=== PATIENT | female | born 1945 ===

== ENCOUNTER 2019-11-04 09:02 | Inpatient (IN) | payer MEDICARE ==
[~2019-11-04] VITALS: Ht 157.5 cm; Wt 43.0 kg
[2019-11-04] MEDS ORDERED: TYLENOL325 MG PO (09:24)
--- NOTE | 2019-11-04 13:47 | NUR ---
NEW ADMIT TO THE FLOOR. PT ARRIVED TO UNIT A&OX4, ON RA, RESP EVEN AND NON LABORED. PT VERY HARD OF HEARING. PT DENIES PAIN AND SOB AT THIS TIME TIME. PT'S SISTER AT BEDSIDE AT THIS TIME. PT DUE TO VOID.
--- NOTE | 2019-11-04 13:50 | NUR ---
CHOCOLATE ENSUDE PROVIDED TO PT. PT DRANK A FEW SIPS AT THIS TIME. PERSONAL SUPPLIES AND CALL LIGHT WITHIN REACH.
--- NOTE | 2019-11-04 13:58 | NUR ---
BLOOD SUGAR CHECKED UPON RN REQUEST. BLOOD SUGAR IS 90, RN NOTIFIED. CALL LIGHT IN REACH. NO FURTHER NEEDS AT THIS TIME.
--- NOTE | 2019-11-04 13:58 | NUR ---
PATIENT RESTING IN BED. RN AND DAUGHTER IN ROOM. I&O DONE. ICE WATER GIVEN. CALL LIGHT WITHIN REACH. NO OTHER NEEDS AT THIS TIME
--- NOTE | 2019-11-04 14:49 | NUR ---
RANITIDINE 150MG PO ADMIN PER PT REQUEST. PT REPORTS ACID REFLUX AT THIS TIME.
--- NOTE | 2019-11-04 15:47 | NUR ---
PATIENT RESTING IN BED. SISTER IN ROOM. BEDBATH DONE. PERICARE DONE. PATIENT USING A CLEAN GOWN AND ADULT PULL UP. PATIENT GOES TO USE THE BASE COMMODE. ONE PERSON ASSISTING. URINE SAMPLE SENT TO THE LABORATORY. CALL LIGHT WITHIN REACH. NO OTHER NEEDS AT THIS TIME
--- NOTE | 2019-11-04 16:40 | NUR ---
PT IN BED AT THIS TIME, EYES CLOSED, APPEARS TO BE SLEEPING. PT HAS NO NOTABLE DISTRESS, RESP EVEN AND NON LABORED. SISTER AT BEDSIDE. NO NEEDS AT THIS TIME REPORTED FROM SISTER. CALL LIGHT WITHIN REACH OF PT.
--- NOTE | 2019-11-04 17:18 | NUR ---
PT A&OX4, ON RA. VS STABLE. PIVOT TO COMMODE; WEAK. ENCOURAGE FOOD INTAKE. PT DOES NOT CALL STAFF APPROP. IV FLUIDS INFUSING.
--- NOTE | 2019-11-04 17:26 | NUR ---
PATIENT RESTING IN BED. SISTERS IN ROOM. VITAL SIGNS AND I&O DONE. LOW SYSTOLIC BLOOD PRESSURE. RN NOTIFIED. CALL LIGHT WITHIN REACH. NO OTHER NEEDS AT THIS TIME
--- NOTE | 2019-11-04 17:35 | NUR ---
PATIENT SITTING UP IN BED. SISTERS IN ROOM. SETS UP TABLE FOR DINNER. CALL LIGHT WITHIN REACH. NO OTHER NEEDS AT THIS TIME
--- NOTE | 2019-11-04 18:05 | NUR ---
CALL LIGHT ANSWERED. PATIENT RESTING IN BED. PATIENT GOES TO USE THE BASE COMMODE. ONE PERSON ASSISTING. PATIENT HAS A RED/ORANGE SMALL BM. RN NOTIFIED. CALL LIGHT WITHIN REACH. NO OTHER NEEDS AT THIS TIME
--- NOTE | 2019-11-04 18:06 | NUR ---
NICOLASA MORGNA ASISSTED PT TO COMMODE NOTED RUST COLOR MUCUS TEXTURE SMALL AMOUNT FROM RECTUM IN DEPENDS CALLED THIS RN INTO SEE, NOTIFIED
--- NOTE | 2019-11-04 18:17 | NUR ---
PT AWAKE, VISITING WITH FAMILY. PT DENIES PAIN AT THIS TIME. PERSONAL SUPPLIES WITHIN REACH. NO NEEDS AT THIS TIME. CALL LIGHT WIHTIN REACH.
--- NOTE | 2019-11-04 18:34 | NUR ---
MED REC COMPLETE
--- NOTE | 2019-11-04 19:44 | NUR ---
RECEIVED REPORT FROM DAY SHIFT RN. PATIENT ASSISTED TO THE BSC A SBA. PATIENT HAD SMALL LOOSE BM. PATIENT IS NOW BACK IN BED RESTING. PATIENT DENIES ANY NEEDS. WARM BLANKET PROVIDED. CALL LIGHT IN REACH. SISTER PRESENT AT THE BEDSIDE. BED ALARM ON FOR SAFETY.
--- NOTE | 2019-11-04 19:50 | NUR ---
ANSWERED CALL LIGHT. 1 PA TO THE BEDSIDE COMMODE AND BACK TO BED. PATIENT STATED " I CAN'T GO". PATIENT DID NOT HAVE VOIDINGS NOR BOWEL MOVEMENT. CALL LIGHT IN REACH. BED ALARM ON. PRIMARY RN NOTIFIED.
--- NOTE | 2019-11-04 20:10 | NUR ---
PATIENT USED THE CALL BUTTON. PATIENT WANTED TO USE THE COMMODE.1 PA TO PIVOT. PATIENT STATED I FEEL LIKE I NEED TO GO". PATIENT IS BACK IN BED. PATIENT DID NOT ABLE TO VOID. PRIMARY RN DONY NOTIFIED. CALL BUTTON WITHIN PATIENT'S REACH. BED ALARM ON.
--- NOTE | 2019-11-04 20:55 | NUR ---
WENT IN TO THE ROOM TO BLADDER SCAN. PATIENT WANTED TO USE THE BEDSIDE COMMODE. PATIENT HAD A SMALL BM. PRIMARY RN DONY CHECKED THE BM. BLADDER SCANNED WITH 207 ML. V/S AND I&O TAKEN AND RECORDED.
--- NOTE | 2019-11-04 21:12 | NUR ---
PATIENT ASSESMENT COMPLETED. PATIENTS IV REDRESSED. PATIENTS EVENING MEDICATIONS GIVEN PER ORDER. PATIENT DENIES ANY PAIN OR SOB. PATIENT EDUCATED ON EAR DROPS. PATIENT DENIES ANY QUESTIONS ABOUT TREATMENT. PATIENTS IV INFUSING PER ORDER. PATIENT BLADDER SCANNED FOR 207. PATIENTS VITALS TAKEN AND RECORDED. INTAKE AND OUPUT RECORDED. PATIENT DENIES ANY FURTHER NEEDS. CALL LIGHT IN REACH.
--- NOTE | 2019-11-04 22:31 | NUR ---
PT CALLED APPROPRIATELY TO USE COMMODE, UNABLE TO VOID. PRIMARY RN AWARE.
--- NOTE | 2019-11-04 22:50 | NUR ---
PATIENT IS RESTING IN BED. PATIENTS IV IS BEEPING. PATIENTS IV IS IN AC. ATTEMPTED NEW IV WITH NO SUCCESS. PATIENT DENIES ANY NEEDS. WRAPPED ARM WITH TOWEL. EDUCATED PATIENT TO KEEP ARM STRAIGHT. BED ALARM ON FOR SAFETY. CALL LIGHT IN REACH.
--- NOTE | 2019-11-04 23:34 | NUR ---
ANSWERED CALL LIGHT. 1 PA TO BEDSIDE COMMODE. NO VOIDINGS OR BOWEL MOVEMENT. THERE WAS A SMEAR COLOR RED ON HER PULL UPS. PATIENT IS BACK IN BED. BURP BAG AND CALL LIGHT IN PATIENT'S HAND.
--- NOTE | 2019-11-05 00:06 | NUR ---
PATIENT IS RESTINGIN BED WITH EYES CLOSED, RR 16. CALL LIGHT IN REACH.
--- NOTE | 2019-11-05 01:56 | NUR ---
PATIENT ASSISTED TO THE COMMODE. PATIENT WAS UNABLE TO VOID. PATIENT IS BACK IN BED RESTING. PATIENTS VITALS TAKEN AND RECORDED. PATIENT BLADDER SCANNED FOR 221ML. AFTER ACITIVITY PATIENT REQUESTED TO USE COMMODE. PATIENT WAS ABLE TO VOID THIS TIME FOR 200ML. PATIENT IS BACK IN BED RESTING. PATIENT DENIES ANY PAIN. PATIENT DENIES ANY NEEDS. PATIENT PROVIDED WITH DRINKS OF WATER. CALL LIGHT IN REACH. ALARM ON FOR SAFETY.
--- NOTE | 2019-11-05 03:20 | NUR ---
1 PA TO COMMODE. PATIENT'S PULL UPS HAD A SMEAR IN RED COLOR. PATIENT DID NOT URINATE OR BM. PATIENT IS BACK IN BED. CALL LIGHT IN REACH. OFFERED WATER TO DRINK AND HAD 2 SIPS. BED ALARM ON FOR SAFETY.
--- NOTE | 2019-11-05 03:32 | NUR ---
PATIENT ASSISTED TO THE RESTROOM A 1PA W/FWW. PATIENT WAS ABLE TO VOID. PATIENT IS NOW RESTING IN RECLINER AND WOULD LIKE TO SIT THER FOR 1 HOUR. PATIENTS BELONGINGS WITHIN REACH. CALL LIGHT IN REACH. PATIENT DENIES ANY FURTHER NEEDS. CALL LIGHT IN REACH.
--- NOTE | 2019-11-05 04:47 | NUR ---
PATIENT ASSISTED TO THE THE BSC A PIVOT TRANSFER. PATIENT IS NOW BACK IN BED RESTING. PATIENTS VITALS TAKEN AND RECORDED. PATIENTS INTKAE AND OUPUT RECORDED. PATIENTS DW TAKEN. PATIENT DENIES ANY NEEDS. CALL LIGHT IN REACH. IV INFSING PER ORDER.
--- NOTE | 2019-11-05 05:08 | NUR ---
PATIENT RESTED ON AND OFF THROUGHOUT THE SHIFT. PATIENT IS ON A REGULAR DIET. DECREASED APPETITE, ENCOURAGE INTAKE, AND OFFER ENSURES. PATIENT HAS DENIED AND PAIN OR NAUSEA. PATIENT IS A 1PA, PIVOT TRANSFER TO [facility]. PATIENT IS TLING[place] & HAIDA. PATIENT IS ON RA. PATIENT IS AAOX3 AND USES CALL LIGHT APPROPRIATELY. IV INFUSING PER ORDER.
--- NOTE | 2019-11-05 05:37 | NUR ---
PATIENTS MORNING MEDICATIONS GIVEN PER ORDER. LAB IN ROOM. PATIENT DENIES ANY NEEDS. CALL LIGHT IN REACH.
--- NOTE | 2019-11-05 06:57 | NUR ---
UNSUCCESSFUL IV ATTEMPTS X 4
--- NOTE | 2019-11-05 07:20 | EKG ---
[facility] [address] [facility] [place], [place] [address] Signed Normal sinus rhythm Low voltage QRS Cannot rule out Anterior infarct , age undetermined Abnormal ECG No previous ECGs available Confirmed by TIGRE TANNER MD ([id number]) on 11/05/2019 7:20:19 AM Electronically Signed By: TIGRE TANNER MD 11/05/1920 PATIENT NAME: AUGUSTUS MOLINA Electrocardiogram DATE OF : 45 PHYSICIAN: TIGRE TANNER MD REPORT #: [id number] REPORT IS CONFIDENTIAL AND NOT TO BE RELEASED WITHOUT AUTHORIZATION
--- NOTE | 2019-11-05 07:31 | NUR ---
Pt awake, a&ox4, resp even and non labored. Pt denies pain at this time. Pt's sister at bedside. Personal supplies and call light within reach.
--- NOTE | 2019-11-05 09:12 | NUR ---
PATIENT RESTING IN BED. SISTERS IN ROOM. PATIENT GOES TO USE THE BASE COMMODE. ONE PERSON ASSISTING. PATIENT BACKS TO BED. VITAL SIGNS AND I&O DONE. PATIENT DID NOT VOID DURING THIS PERIOD. RN NOTIFIED. CALL LIGHT WITHIN REACH. NO OTHER NEEDS AT THIS TIME
--- NOTE | 2019-11-05 11:13 | NUR ---
PATIENT RESTING IN BED. IV WRAPPED. PATIENT GOES TO THE BATHROOM TO TAKE A SHOWER. ONE PERSON ASSITING. PATIENT USING A CLEAN GOWN AND ADULT PULL UP. LINENS CHANGED. WARM BLANKETS PROVIDED. CALL LIGHT WITHIN REACH. NO OTHER NEEDS AT THIS TIME
--- NOTE | 2019-11-05 14:06 | NUR ---
WENT TO CHECK ON PT-RN FAMILIA IN WITH PT ASSISTING. FAMILY IN RM. WILL CHECK BACK AGAIN
--- NOTE | 2019-11-05 14:21 | NUR ---
PATIENT RESTING IN BED. VITAL SIGNS AND I&O DONE. PATIENT DID NOT DRINK ANY LIQUIDS DURING THIS PERIOD, THIS COMIC BOOK WRITER ENCOURAGE HER TO DO IT BUT THE PATIENT REFUSES. RN NOTIFIED. WARM BLANKET PROVIDED. CALL LIGHT WITHIN REACH. NO OTHER NEEDS AT THIS TIME
--- NOTE | 2019-11-05 14:54 | NUR ---
Pt has been on the commode serveral times this afternoon. Pt reports sensation to have a bm each time when up to bedside commode. Pt passing small amounts of soft stool. Pt has what appears to look like external hemorrhoids. Notable, flavio colored stool. Per shift report pt had a positive occult blood stool test. Bladder scan completed; 204ml noted. Dr. Nichols made aware of bladder scan.
--- NOTE | 2019-11-05 15:22 | NUR ---
In to speak with pt and family. Pt is awake, keeps eyes closed. Does agree to answer questions. Pt. is able to answer questions for CM assessmetn, but has difficulty hearing. Pt lives aloone in an apartment and neighbor upstains checks on jher rarely. Pt is a private person and prefers to ask for help rather than people check onher. Sisters called her everyday, but over the last few months one retired and is ill. They have not been able to contact as much. Last when they called they could tell she was very weak. Prt's passed 2 years ago and per sisters, he did the shopping and took care of everything. He made all the decisions. Sisters would like pt to move to [place] to a senior care until she becomes stronger. They are also concerned pt. has not been taking her RA injections. Asked Sheryl if she would agree to this and she states for a short time, she will consider. Informed pt and sisters I will call [facility] as this is [facility] in [place] and request space. Sisters state their mom lived there and they are very happy with the care which was provided. Called [facility] [phone] and was unable to contact RN or admissions. Left message with phone number for return call. Pt states she has not felt well for at least one month, stopped driving, shopping, and going out. Neighbor bought her cat food, but she doesn't remember when. States she has lived on peanut butter. States she thinks she has been cooking, but can't remember. Will attempt to place at [facility] in [place].
--- NOTE | 2019-11-05 16:49 | NUR ---
Pt resting in bed, resp even and non labored. Pt has no distress noted. Personal supplies and call light within reach.
--- NOTE | 2019-11-05 16:58 | NUR ---
CALL LIGHT ANSWERED. PATIENT RESTING IN BED. PATIENT USES BASE COMMODE. ONE PERSON ASSISTING. PATIENT BACKS TO BED. VITAL SINGS AND I&O DONE. CALL LIGHT WITHIN REACH. NO OTHER NEEDS AT THIS TIME
--- NOTE | 2019-11-05 18:25 | NUR ---
PT REFUSED DINNER. ENCOURAGED PT TO DRINK WATER/ENSURE; PT FEFUSES AND STATES "I DON'T WANT ANYTHING".
--- NOTE | 2019-11-05 19:59 | NUR ---
CALL LIGHT ANSWERED. SBA TO PIVOT TO BSC. pt UNABLE TO VOID AT THIS TIME, DENIES DISCOMFORT. pt BACK IN BED. ASSESSMENT COMPLETE. IV FLUSHED, INFUSING WNL ORDERED. CALL LIGHT IN REACH. pt DENIES ANY NEEDS AT THIS TIME.
--- NOTE | 2019-11-05 20:16 | NUR ---
ROUNDED CHARGE. PATIENT IS UP TO THE COMMODE. EDWIN DELVALLE IN ROOM AND SG MORGAN. PATIENT DENIES ANY COMMENTS, QUESTIONS, OR CONCERNS. NO NEEDS NOTED. CALL LIGHT IN REACH.
--- NOTE | 2019-11-05 21:18 | NUR ---
pt CALLING OUT "HELP". ATTEMPTING TO GET OUT OF BED. UP TO BSC FOR SCANT VOID, SMALL INCONTINENCE IN ATTENDS. CHANGED. pt BACK IN BED. ALARM ON. CALL LIGHT IN LAP. IVF INFUSING WNL.
--- NOTE | 2019-11-05 23:24 | NUR ---
CALL LIGHT ANSWERED. SBA TO PIVOT TO BSC. SCANT VOID AND SMEAR BM, ATTENDS CHANGED. BACK IN BED, CALL LIGHT IN REACH. IVF INFUSING WNL ORDERED. NO REQUESTS AT THIS TIME.
--- NOTE | 2019-11-06 01:06 | NUR ---
CALL LIGHT ANSWERED. SBA TO PIVOT TO BSC. UNABLE TO VOID IN COMMODE. BACK IN BED, CALL LIGHT ANSWERED AGAIN. LARGE INCONTINENCE OF STOOL AND URINE NOTED. ATTENDS CHANGED. CALL LIGHT IN REACH. BED ALARM ON.
--- NOTE | 2019-11-06 02:56 | NUR ---
CALL LIGHT ANSWERED. SBA TO PIVOT TO BSC. NO VOID OR STOOL NOTED. ATTENDS DRY. BACK IN BED. IVF INFUSING WNL ORDERED. ASSESSMENT COMPLETE. pt DENIES ANY PAIN. CALL LIGHT IN REACH.
--- NOTE | 2019-11-06 03:23 | NUR ---
CALL LIGHT ANSWERED. SBA TO BSC, SCANT VOID AND SMEAR OF BM NOTED. BACK IN BED. WARM BLANKET PROVIDED. NEW BAG IVF INFUSING WNL ORDERED. BED ALARM ON. CALL LIGHT IN REACH.
--- NOTE | 2019-11-06 05:00 | NUR ---
[place]. 1PA TO PIVOT TO BSC FREQUENTLY THROUGHOUT SHIFT. SOME INCONTINENCE OF STOOL AND URINE NOTED. MINIMAL PO INTAKE, INTAKE ENCOURAGED. DENIES PAIN AND NAUSEA. IVF INFUSING WNL ORDERED. IMPULSIVE X 1, BED ALARM IN PLACE.
--- NOTE | 2019-11-06 05:31 | NUR ---
CALL LIGHT ANSWERED. SBA TO PIVOT TO BSC AND BACK TO BED. SCHEDULED MEDICATION ADMINISTERED. pt DRINKING WATER. WARM BLANKETS PROVIDED. CALL LIGHT IN REACH.
--- NOTE | 2019-11-06 07:15 | NUR ---
REPORT RECEIVED FROM ADELIA LYON. PT RESTING IN BED. [facility] VOIDS SMALL AMOUNT OF URINE. SBA BACK TO BED. PT DENIES PAIN AND NAUSEA. SISTER ARRIVED. NO ADDITIONAL REQUESTS OR COMPLAINTS. CALL LIGHT WITHIN REACH.
--- NOTE | 2019-11-06 08:20 | NUR ---
MORNING ASSESSMENT AND MEDICATION DUE. PT RESTING IN BED. PT DECLINES BREAKFAST. ENSURE PROVIDED, PT DECLINES. EDUCATION DONE WITH PT REGARDING NUTRITION. PT VERBALIZES UNDERSTANDING. FAMILY AT BEDSIDE AND ARE ENCOURAGING PT TO EAT/DRINK. PT UP TO COMODE X4 WHILE THIS RN IS AT BEDSIDE FOR ASSESSMENT. SMALL VOIDS AND MULITPLE LOOSE/LIQUID BOWEL MOVEMENTS NOTED. VIKKI CARE AND DEPENDS CHANGED MULTIPLE TIMES. MD NOTIFIED. SAMPLE COLLECTED. DINING ROOM CASHIER AT BEDSIDE.
--- NOTE | 2019-11-06 10:00 | NUR ---
Called Title I Instructional Assistant, admissions, and Rn. Left message for call back as we are needing to place a patient.
--- NOTE | 2019-11-06 10:25 | NUR ---
THIS RN TO ROOM WITH MD FOR ROUNDS. PT RESTING IN BED. PT REPORTS FEELING COLD. WARM BLANKETS PROVIDED. PIV LEAKING. PIV DC'D PER PROTOCOL. NEW PIV STARTED IN LFA, BLOOD RETURN NOTED WITH IV START. IV INFUSION RESTARTED. PT RESTING IN BED. RESPIRATIONS EVEN AND UNLABORED. CLEAR ENSURE PROVIDED WITH ICE TO DILUTE. LUNCH ORDER PLACED. PT SISTER VISITING WITH GAURANG, CASE MANAGEMENT. NO ADDITIONAL REQUESTS OR COMPLAINTS AT THIS TIME. CALL LIGHT WITHIN REACH.
--- NOTE | 2019-11-06 10:30 | NUR ---
Received call from Phy Therapist at [facility]. They do not have a any room availability until the new year. He recommended their assisted living if pt does not need more than 1 person assist. Called and spoke with Riya [phone] phone and [phone] fax. She does have beds available. Requests we send chart when pt is closer to [place]. Discussed with Dr. Nichols and she feels pt. is not read for dc.
--- NOTE | 2019-11-06 11:11 | NUR ---
PT CALL LIGHT ON X3. PT REQUESTS ASSISTANCE UP TO COMODE EVERY 5-10 MINUTES. DEPENDS REMAINS DRY. WHEN PT IS UP TO COMODE PT IS UNABLE TO HAVE BM OR VOID. PT STATES SHE WANTS TO HAVE A BOWEL MOVEMENT. PT BACK TO BED AFTER VIKKI CARE (X3) AND DEPENDS CHANGE (X1). WARM BLANKETS PROVIDED FOR PT. PT DENIES ADDITIONAL REQUESTS OR COMPLAINTS AT THIS TIME. CALL LIGTH WITHN REACH. BED ALARM ON.
--- NOTE | 2019-11-06 12:11 | NUR ---
NOON ASSESSMENT DUE. PT RESTING WITH EYES CLOSED. PT AWAKENS TO VOICE AND LIGHT TOUCH. PT DECLINES TIME UP TO CHAIR OR BATHROOM USE. PT DENIES PAIN AND NAUSEA. ASSESSMENT DONE. PT REQUESTS TIME TO REST. ENSURE ENCORUAGED. PT TAKES ONE SMALL SIP. NO ADDITIONAL REQUESTS OR COMPLAINTS. CALL LIGHT WITHIN REACH. BED ALARM ON.
--- NOTE | 2019-11-06 12:25 | NUR ---
THIS RN TO ROOM TO CHECK ON PT. PT SITTING ON EDGE OF BED FINISHING LUNCH. 1PA, WALKER UP TO RESTROOM. DEPENDS WET. PT UNABLE TO CHANGE DEPENDS ON HER OWN, ASSISTANCE PROVIDED. PT ABLE TO WIPE SELF. 1PA, WALKER BACK TO BED. PT UNABLE TO GET SELF INTO BED. 1PA TO GET INTO BED. SON AT BEDSIDE. CALL LIGHT WITHIN REACH.
--- NOTE | 2019-11-06 12:51 | NUR ---
PT CALL LIGHT ON. PT REQUESTS ASSISTANCE UP TO COMODE. 1PA UP TO COMODE. PT UNABLE TO HAVE BM EXPECTED. SMALL SMEER ON DEPENDS. VIKKI CARE DONE. DEPENDS CHANGED. PT BACK TO BED. ENSURE ENCORUAGED, PT REFUESES TO TAKE A SIP OF ENSURE. NO ADDITIONAL REQUESTS OR COMPLAINTS. PTS SISTER AT BEDSIDE. CALL LIGHT WITHIN REACH.
--- NOTE | 2019-11-06 13:23 | NUR ---
PT REATING IN BED, TV AND LIGHTS OFF. PT SAID SHE WAS FINE, BUT NEEDED TO USE BR. REQUESTED HELP, PASSED ON TO STAFF. WILL CONTINUE TO FOLLOW NEEDED
--- NOTE | 2019-11-06 13:30 | NUR ---
Sister Monica returned from getting flu shot. Has paper work for POA. Plans on leaving tomorrow. Attempted to call kale in the hospital as [facility] agrees to Monica to be her POA. Notarys are gone today. Called her bank and their notary agrees to come notarize POA. Update Monica I spoke with assisted living in [place] and there are beds available. Plan at this time: 1. pt needs to stablize thyroid 2. possible placement to SNF or TC depending on how pt progresses, 3. Placement to SNF or Assisted living depending on progress. Sister, Choco, will stay in [place] with [facility] until she leaves the hospital. Sister, Livia, will return to [place] tomorrow to care for her spouse. on Hospice.
--- NOTE | 2019-11-06 13:45 | NUR ---
THIS RN TO ROOM TO CHECK ON PT. PT UP TO COMODE, UNABLE TO VOID. MD NOTIFIED OF PTS INADEQUATE URINE OUTPUT. NO NEW ORDERS AT THIS TIME. CALL LIGHT WITHIN REACH. FAMILY AT BEDSIDE.
--- NOTE | 2019-11-06 14:19 | NUR ---
PT CALL LIGHT ON. PT REQUESTS ASSISTANCE UP TO BEDSIDE COMODE. SBA UP TO COMODE. PT UNABLE TO VOIDE OR HAVE BM. PT REQUESTS TO GET BACK TO BED. VITALS TAKEN. I/O'S RECORDED. AWARE THAT PT IS NOT VOIDING QUANTITY SUFFICIENT. WARM BLANKETS PROVIDED. NO ADDITIONAL REQUESTS OR COMPLAINTS AT THIS TIME. CALL LIGHT WITHIN REACH.
--- NOTE | 2019-11-06 15:30 | NUR ---
PT CALL LIGHT ON. PT REQUESTS TO GET UP TO RESTROOM. PT ABLE TO VOID 100ML DARK YELLOW/BROWN URINE. BLADDER SCAN DONE WITH 115ML FOUND REMAINING IN BLADDER. VIKKI CARE DONE. DEPENDS PLACED. PT CALLS AGAIN X3, WANTING TO GET UP AGAIN. PT UP TO COMODE. NO VOIDS. PT MOVED TO ROOM 111 FOR BETTER VIEW AND EASIER VIEW FROM NURSES STATION. BED ALARM ON. CALL LIGHT WITHIN REACH.
--- NOTE | 2019-11-06 16:11 | NUR ---
AFTERNOON ASSESSMENT DUE. PT CALL LIGHT ON. PT REQUESTS ASSISTANCE UP TO COMODE. SBA UP TO COMODE. VERY SMALL AMOUNT OF LOOSE STOOL NOTED IN DEPENDS. PT UNABLE TO VOID OR HAVE BM ON COMODE. VIKKI CARE DONE. DEPENDS CHANGED. SBA BACK TO BED. ASSESSMENT DONE. ABDOMEN SOFT. LUNG SOUNDS CLEAR. PT DENIES PAIN OR NAUSEA. SMALL AMOUNT OF EDEMA NOTED TO BILATERAL ANKLES. PT ORIENTED X4, FORGETFUL, AND QUICKLY FALLS ASLEEP. ENSURE ENCOURGAED. PT DECLINES ENSURE. WARM BLANKETS PROVIDED. NO ADDITIONAL REQUESTS OR COMPLAINTS AT THIS TIME. CALL LIGHT WITHIN REACH. PT EASILY VIEWED FROM NURSES STATION. BED ALARM ON.
--- NOTE | 2019-11-06 18:00 | NUR ---
MD CONSULTED REGARDING PTS URGENCY AND FREQUENCY WITH WANTING TO USE RESTROOM, AND INSUFFICIENT URINE OUTPUT. NEW ORDERS PLACED. ORDERS FOR STRAIGHT CATH AND UA PLACED. STRAIGHT CATH ATTEMPTED UNSUCCESSFULLY. AUTOMATION ENGINEER TO BEDSIDE. UNSUCESSFULL WITH CATHETER PLACEMENT. MD NOTIFIED. STATES TO ATTEMPT CLEAN CATCH WITH LATER VOIDS. BOLUSE HUNG. NO ADDITIONAL REQUESTS OR COMPLAINTS AT THIS TIME. CALL LIGHT WITHIN REACH. BED ALARM ON. PT EASILY VIEWED FROM NURSES STATION.
--- NOTE | 2019-11-06 18:32 | NUR ---
PT HERE FOR MYXEDEMA COMA. MULTIPLE LOOSE BOWEL MOVEMENTS THIS SHIFT. PT USING CALL LIGHT Q 10-15 MINUTES WITH URGENCY. STRAIGHT CATH ATTEMPTED UNSUCESSFULLY. URINE COLLECTION PENDING. INTAKE AND OUTPUT INSUFFICENT THIS SHFIT. IV FLUID BOLUS INFUSING. ENCOURAGE PO INTAKE. PT ORIENTED X4 BUT FORGETFUL AND IMPULSIVE WITH ACTIVITIES. BED/CHAIR ALARM IN PLACE. PT RELUCTANT WITH CARES AND HAS NO APPITITE. FAMILY INVOVED WITH PLAN OF CARE.
--- NOTE | 2019-11-06 19:03 | NUR ---
NOTIFIED OF PTS BP. NO NEW ORDERS AT THIS TIME.
--- NOTE | 2019-11-06 19:05 | NUR ---
SHIFT REPORT RECIEVED FROM JOSE RAMON DELVALLE. IV FLUIDS INFUSING PER ORDER. PT RESTING IN BED, LISTENING TO TV. NO NEEDS A THIS TIME. CALL LIGHT IN REACH.
--- NOTE | 2019-11-06 20:10 | NUR ---
PT CALLED FOR ASSISTANCE TO BSC. SHE HAD A SMALL LIQUID BM IN HER ATTENDS. SHE IS BACK IN BED AND DENIES NEEDS AT THIS TIME. CALL LIGHT IS CLOSE AND BED ALARM IS ON.
--- NOTE | 2019-11-06 20:45 | NUR ---
PT USED CALL LIGHT TO REQUEST ASSISTANCE ONTO BSC, AFTER WAITING A WHILE TWO DROPS OF LIQUID BM OCCURRED. NOTHING FURTHER WAS NEEDED AT THIS TIME. BED ALARM SET AND PT BEGAN RESTING IMMEDIATELY AFTER RETURNING TO BED.
--- NOTE | 2019-11-06 21:07 | NUR ---
PT USED CALL LIGHT TO ASK FOR ASSISTANCE TO RESTROOM, AFTER SITTING A WHILE, NO RESULT. PT BACK INTO BED WITH BED ALARM ON. VS AND I&OS COMPLETE.
--- NOTE | 2019-11-06 22:00 | NUR ---
ASSESSMENT COMPLETED. SCHEDULED MEDS PROVIDED. PT UP TO BSC. STOOL SAMPLE COLLECTED AND SENT TO LAB. NO OTHER NEEDS AT THIS TIME. CALL LIGHT IN REACH.
--- NOTE | 2019-11-07 00:05 | NUR ---
PT RESTING IN BED, EYES CLOSED. RR 16, EVEN, UNLABORED. CALL LIGHT IN REACH.
--- NOTE | 2019-11-07 01:23 | NUR ---
BLADDER SCAN OF 258ML. PT UP TO BSC. UO 50ML. IV FLUIDS INFUSING PER ORDER.
--- NOTE | 2019-11-07 01:50 | NUR ---
CALLED MD CONCERNING URINE OUTPUT AND FREQUENT LIQUID STOOLS. MD GAVE VERBAL ORDER TO CONTINUE FLUIDS ORDERED AND TO SEND STOOL TO LAB. STOOLS HAVE BEEN SENT TO LAB. ORDER REPEATED BACK.
--- NOTE | 2019-11-07 03:49 | NUR ---
PT RESTING IN BED, EYES CLOSED. RR 12, EVEN, UNLABORED. CALL LIGHT IN REACH.
--- NOTE | 2019-11-07 04:29 | NUR ---
ASSESSMENT COMPLETED. IV CDI, WNL. IV FLUIDS INFUSING PER ORDER. PT A&O TO PERSON, PLACE AND EVENT. NO OTHER NEEDS AT THIS TIME. CALL LIGHT IN REACH.
--- NOTE | 2019-11-07 04:54 | NUR ---
PT UP TO BSC. BACK TO BED. BLADDER SCAN SHOWS 291ML. NO OTHER NEEDS. CALL LIGHT IN REACH.
--- NOTE | 2019-11-07 04:57 | NUR ---
PT HAS NOT SLEPT WELL THIS SHIFT. SHE HAS FELT THE NEED VERY FREQUENTLY TO BE ON BSC. SHE HAS HAD NUMEROUS LIQUID STOOL IN HER ATTENDS AND ON BSC. SHE HAD A SMALL AMOUNT OF URINE OUTPUT THIS SHIFT. MORNING BLADDER SCAN SHOWS 291ML OF URINE. PT TOLERATED MEDICATIONS AND IV FLUIDS WELL. IV CDI, WNL.
--- NOTE | 2019-11-07 05:50 | NUR ---
SCHEDULED MED PROVIDED. NO OTHER NEEDS. CALL LIGHT IN REACH.
--- NOTE | 2019-11-07 07:28 | NUR ---
REPORT RECIEVED FROM ASSOCIATE PATHOLOGIST RN. PT IN GEDWITH EYES CLOSED. RESPIRATIONS EQUAL AND NONLABORED. D5LR AT 125 INFUSING. CONTACT RPECAUTIONS IN PLACE. BED ALARM ON. CALL LIGHT IN REACH
--- NOTE | 2019-11-07 08:00 | NUR ---
SBA TO BATHROOM. INCONT OF SMALL LIQ STOOL. BACK TO BED WITH CALL LIGHT. PT REFUSING TO EAT BREAKFAST OR GET UP TO CHAIR.
--- NOTE | 2019-11-07 09:30 | NUR ---
PT IN TO [facility] WITH PT AND FAMILY ABOUT PLAN OF CARE. PT UP TO BATHROOM FOR LIQ BM. BACK TO BED. CALL LIGHT IN REACH.
--- NOTE | 2019-11-07 09:45 | NUR ---
In and spoke with sister Monica Choco, and ptThadedus Saucedo. They would like to proceed with admit to Assisted Living in [place]. Dr. Sutton and discussed dc on Sunday with family. Called Clarice at [facility]. Chart sent with Face sheet, ER notes, H &P, Progess Notes, PT/OT evals and notes. Received confirmation at 10:06. Called [facility], they are booked for next week. Called [facility] and they are closed for two weeks. Called [facility] and they will call me back.
--- NOTE | 2019-11-07 10:18 | NUR ---
PHYSICAL THERAPY IT TO TRY AND WORK WITH PT. PT REFUSED THERAPY AD THIS TIME WELL OCCUPATIONAL THERAPY D/T FREQUENT BOWEL MOVEMENTS. PT ASSISTED BACK TO BED FROM [facility]. CALL LIGHT IN REACH.
--- NOTE | 2019-11-07 11:02 | NUR ---
BYPRODUCTS OPERATOR REPORTS THAT PTS BLOOD PRESSURE 84/46, REPORTED TO DR MACHADO. MANUAL BLOOD PRESSURE CHECKED, 96/50. DR MACHADO AWARE. CONTINUE TO MONITOR.
--- NOTE | 2019-11-07 11:16 | NUR ---
SHOP LEAD REPORTED LOW BLOOD PRESSURE AND NO URINE OUTPUT THIS SHIFT. BLADDER SCAN DONE. PT WITH [address] MACHADO NOTIFIED. NO NEW ORDERS.
--- NOTE | 2019-11-07 11:20 | NUR ---
PT UP TO BSC. NO BM OR URINE OUT. ASSISTED BACK TO BED.
--- NOTE | 2019-11-07 12:15 | NUR ---
VISITED WIT PTS' SISTERS FROM OUT OF TOWN. WAITING TO TRANSFER PT NEAR THEM. BOTH MENTIONED THAT THEY WOULD LIKE FR PINO TO COME TODAY FOR VISIT, INFORMED HIM. WILL FOLLOW NEEDED
--- NOTE | 2019-11-07 13:47 | NUR ---
ASSISTED PT TO BSC FOR LIQUID BM. PT STILL REFUSING TO EAT OR DRINK. WILLING TO TAKE SCHEDULED MEDICAITONS. REPORTS SOME NAUSEA BUT IS REFUSING ZOFRAN. BACK TO BED WITH WARM BLANKET. CALL LIGHT IN REACH.
--- NOTE | 2019-11-07 13:59 | NUR ---
Call from Rn at [facility]. Questions answered and she states she will attempt to let me know today if they will accept. She states she may have to let us know Sunday morning.
--- NOTE | 2019-11-07 14:06 | NUR ---
PT STILL WITH NO VISILBE URINE OUTPUT. PT REORTS URINATING, UNABLE TO MEASURE. DR MACHADO NOTIFIED. NO NEW RODERS. WILL CONT TO MONITOR.
--- NOTE | 2019-11-07 14:53 | NUR ---
PATIENT HAS HAD SEVERAL SIPS OF DILUTED ORAL CT CONTRAST. ABLE TO TAKE SODIUM TABLET WITH SEVERAL BITES OF APPLESAUCE.
--- NOTE | 2019-11-07 17:00 | NUR ---
PT OFF FLOOR TO IMAGING
--- NOTE | 2019-11-07 17:30 | NUR ---
PT BACKTO FLOOR FROM IMAGING. INCONT OF STOOL. TO BSC THEN BED. CALL LIGHT IN REACH. PT REFUSING DINNER.
--- NOTE | 2019-11-07 19:14 | NUR ---
RECEIVED REPORT FROM ADELIA RIZZO. pt RESTING IN BED, EYES CLOSED, RESPIRATIONS REGULAR AND UNLABORED. NO REQUESTS AT THIS TIME. WHITEBOARD UPDATED. CALL LIGHT WITHIN REACH.
--- NOTE | 2019-11-07 20:36 | NUR ---
MD CALLED REQUESTED A MANUAL BP BE TAKEN AND NOTIFY PROVIDER IF UNDER 90 SYSTOLIC.
--- NOTE | 2019-11-07 21:14 | NUR ---
pt RESTING IN BED. TOOK MANUAL BLOOD PRESSURE. pt UP TO BSC, 1PA MULTIPLE TIMES DURING ASSESSMENT. MEDICATIONS GIVEN. SUPPOSITORY SEEN AFTER pt UP TO BSC AGAIN. VITALS AND I&O RECORDED. CALL LIGHT WITHIN REACH.
--- NOTE | 2019-11-07 21:16 | NUR ---
REPOSITIONED HER IN BED WITH THE HELP OF ADELIA KOEHLER. TEMP TAKEN. ROOM CLEANED. BEDSIDE TABLE AND CALL LIGHT IN REACH.
--- NOTE | 2019-11-07 23:29 | NUR ---
pt UP TO BSC MULTIPLE TIME. ECONOMICS PROFESSOR IN ROOM.
--- NOTE | 2019-11-07 23:33 | NUR ---
HELPED PT TO THE BSC AND BACK TO BED. COVERED HER UP, PUT BED ALARM ON. BEDSIDE TABLE AND CALL LIGHT IN REACH.
--- NOTE | 2019-11-07 23:34 | NUR ---
PT CALLED OUT SHE NEEDED TO GO AGAIN. HELPED HER ONTO THE BSC. SHE SAID SHE WAS DONE AND IF SHE COULD GET BACK INTO BED. I STARTED TO HELP HER BUT SOON SHE STOOD UP SHE STARTED HAVING MORE LIQUID STOOL. SHE SAT FOR A COUPLE OF MIN AND ASKED IF SHE COULD GET BACK INTO BED. I HELPED HER INTO BED AND COVERED HER UP. SHE STARTED SAYING SHE HAD TO GO AGAIN. SHE HAD ALREADY HAD A LOT OF LIQUID STOOL IN HER PULL UP SO I CHANGED HER IN THE BED. BEDSIDE TABLE AND CALL LIGHT IN REACH. BED ALARM SET. PT NEEDS NOTHING MORE AT THIS TIME.
--- NOTE | 2019-11-08 01:24 | NUR ---
ROUNDED ON pt. RESTING WITH EYES CLOSED, RESPIRATIONS REGULAR AND UNLABORED. CALL LIGHT WITHIN REACH.
--- NOTE | 2019-11-08 03:09 | NUR ---
CALL LIGHT ON. pt UP TO BSC AND BACK TO BED, 1PA. CALL LIGHT WITHIN REACH.
--- NOTE | 2019-11-08 03:24 | NUR ---
PT CALLED FOR ASSISTANCE TO BSC. SHE IS NOW BACK IN BED AND DENIES FURTHER NEEDS. ATTENDS HAD SOME LIQUID BM IN IT AND SHE HAD ABOUT 100MLS IN THE BSC. IT IS DIFFICULT TO TELL IF SOME OF IT WAS URINE. CALL LIGHT IS CLOSE AND BED ALARM IS ON.
--- NOTE | 2019-11-08 06:00 | NUR ---
PT CALLED FOR ASSISTANCE TO BSC. SHE HAD A LIQUID BM IN HER ATTENDS. WEIGHT TAKEN AND SHE IS BACK IN BED AND DENIES FURTHER NEEDS AT THIS TIME. WARM BLANKET PROVIDED AND LAB IS IN THE ROOM WITH HER AT THIS TIME.
--- NOTE | 2019-11-08 06:15 | NUR ---
VITALS AND I&OS DONE AND CHARTED. GARBAGES EMPTIED. BEDSIDE TABLE AND CALL LIGHT IN REACH.
--- NOTE | 2019-11-08 06:30 | NUR ---
ASSESSMENT DONE. pt SHAKING, SHAKING STOPPED WITH WARM BLANKET. pt SLOW TO RESPOND, DENIED PAIN. UP TO BSC. LIQUID STOOL AND URINE. BLADDER SCANNED 362 FOUND. GLUING MACHINE OFFBEARER IN ROOM TO ASSIST pt TO BSC AGAIN.
--- NOTE | 2019-11-08 06:37 | NUR ---
pt RESTED ON AND OFF DURING SHIFT. UP MULTIPLE TIMES FOR BM, SEVERAL INCONTINENT EPISODES. DID VOID 100. DENIED PAIN DURING SHIFT. 1PA TO BSC. USES CALL LIGHT APPROPRIATELY.
--- NOTE | 2019-11-08 06:47 | NUR ---
RETA, SISTER OF pt, CALLED. GENERAL UPDATE GIVEN. MESSAGE LEFT FOR pt.
--- NOTE | 2019-11-08 07:22 | NUR ---
REPORT RECEIVED PT RESTING SOUNDLY
--- NOTE | 2019-11-08 10:05 | NUR ---
PT REFUSES BREAKFAST, JUICE PROVIDED WITH MORNING MEDS PT ENCOURAGED TO EAT AND DRINK, ENSURE OFFERED WELL, PT TAKES SIPS OF JUICE ONLY. PT REFUSES UP TO THE CHAIR, STATES SHE DIDN'T SLEEP WELL AND SHE WOULD LIKE TO JUST SLEEP. SISTER IN TO SEE PT.
--- NOTE | 2019-11-08 13:38 | NUR ---
PT SISTER REMAINS IN THE ROOM LUNCH PORVIDED PT REFUSES ALL OFFERS OF FOOD AND DRINK. RESTING IN BED DENIES DISCOMFORTS OR NEEDS OF
--- NOTE | 2019-11-08 16:13 | NUR ---
patient is up to the bathroom every hr. patient has diarrhea. RN notified patient is still not drinking or eating.
--- NOTE | 2019-11-08 16:49 | NUR ---
PT HAS BEEN UP TO TOILET SEVERAL TIMES TRANSFERS WELL RETURNS TO BED REFUSING THE CHAIR FOR A TIME. PT HAS REFUSED PO INTAKE THIS SHIFT OTHER THAN SOME APPLESAUCE WITH MEDS AND SIPS OF H20. DENIES PAIN, DISCOMFORTS, OR NEEDS OF
--- NOTE | 2019-11-08 17:43 | NUR ---
PT REFUSES EVENING MEAL, REFUSES SOUP, FRUIT, ENSURE, OR OTHER. PT ALSO REFUSES ABX AND VITAMIN ORDERED. DR MACHADO NOTIFIED.
--- NOTE | 2019-11-08 19:07 | NUR ---
RECEIVED REPORT FROM ADELIA SANCHEZ. pt REQUESTED TO USE COMMODE, 1PA FWW. SETTLED IN BED. CALL LIGHT WITHIN REACH. WHITEBOARD UPDATED.
--- NOTE | 2019-11-08 21:30 | NUR ---
HELPED PT TO THE BSC AND BACK TO BED. VITALS AND I&OS DONE AND CHARTED. TWO WARM BLANKETS GIVEN. BEDSIDE TABLE AND CALL LIGHT IN REACH.
--- NOTE | 2019-11-08 22:00 | NUR ---
ASSESSMENT DONE. pt DENIED PAIN. pt REFUSED FOOD AT THIS TIME. pt UP TO BSC 1PA FWW. MEDICAITON GIVEN (SEE MAR). NO REQUESTS AT THIS TIME. CALL LIGHT WITHIN REACH.
--- NOTE | 2019-11-08 23:46 | NUR ---
pt CALLED OUT. UP TO BSC AND BACK TO BED. CLEAN DEPENDS IN PLACE. CALL LIGHT WITHIN REACH.
--- NOTE | 2019-11-09 02:37 | NUR ---
pt RESTING WITH EYES CLOSED, RESPIRATIONS REGULAR AND UNLABORED. CALL LIGHT WITHIN REACH.
--- NOTE | 2019-11-09 03:28 | NUR ---
pt UP TO VOID INDEPENDENTLY. pt AMBULATED BACK TO BED SBA FWW. ASSESSMENT DONE. NO REQUESTS AT THIS TIME. CALL LIGHT WITHIN REACH. BED ALARM ON.
--- NOTE | 2019-11-09 06:17 | NUR ---
MEDICATION GIVEN (SEE MAR). pt UP TO TOILET. SBA FWW. BACK TO BED. MANUAL BLOOD PRESSURE TAKEN DUE TO TREMOR. VITALS AND I&O RECORDED. CALL LIGHT WITHIN REACH.
--- NOTE | 2019-11-09 06:26 | NUR ---
pt RESTED ON AND OFF. 1PA/SBA FWW. IV SL. NO PO INTAKE. HAS NOT USED CALL LIGHT THIS SHIFT.
--- NOTE | 2019-11-09 07:33 | NUR ---
BEDSIDE REPORT RECEIVED, PT RESTING SOUNDLY
--- NOTE | 2019-11-09 08:03 | NUR ---
Patient is awake repostioned patient, call light in reach and fresh water given, helped patient call her friend
--- NOTE | 2019-11-09 08:56 | NUR ---
PT APPEARS SLEEPING, DOES NOT RESPOND TO VOICE OR GENTLY SHAKE, RESPONDS ONLY WHEN COVERS ARE PULLED BACK. ENCOURAGED PT TO HAVE PO INTAKE AND TAKE MORNING MEDICATIONS PRESCRIBED BY MD. PT REFUSES FLATLY. REFUSES TO GET UP TO CHAIR OR ENGAGE THIS ATOMIC FUEL ASSEMBLER IN ANYWAY. REMAINS RESTING EYES CLOSED, FACIAL EXPRESSION GAONA.
--- NOTE | 2019-11-09 12:48 | NUR ---
PT SISTER IS IN TO SEE HER. PT CONTINUES TO REFUSE ALL PO INTAKE, ABS SWITCHED TO IV.
--- NOTE | 2019-11-09 13:21 | NUR ---
PATIENT IMPULSIVE EVEN WITH STAFF AT BEDSIDE. HAVING LIQUID DIARRHEA. IV LEAKING. REMOVED FROM LEFT FOREARM. UNABLE TO URINATE. BLADDER SCAN 330ML.
--- NOTE | 2019-11-09 18:07 | NUR ---
PT REFUSES FOOD OR FLUIDS THIS EVENING. OFFERED SEVERAL ITEMS SHE REFUSES ALL. WARM BLANKET PROVIDED ASSISTED PT TO GET TUCKED IN.
--- NOTE | 2019-11-09 19:05 | NUR ---
BEDSIDE REPORT RECEIVED FROM ADELIA SANCHEZ. pt RESTING IN BED WITH EYES CLOSED. BREATHING EQUAL AND UNLABORED. BED ALARM ON.
--- NOTE | 2019-11-09 20:40 | NUR ---
ROUNDED CHARGE. PATIENT IS RESTING IN BED WITH EYES CLSOED, RR 17. CALL LIGHT IN REACH. BED ALARM ON FOR SAFETY.
--- NOTE | 2019-11-09 22:07 | NUR ---
pt AWAKENS TO VOICE. IV FLUSHED WNL, ANTIBIOTIC INFUSING WNL ORDERED. 1PA TO BSC FOR VOID, INCONTINENT VOID AND SMEAR OF BM NOTED. pt DENIES PAIN. ASSESSMENT COMPLETE. REFUSES SUPPOSITORY AND PO FLUIDS, SNACKS. CALL LIGHT IN REACH. BED ALARM ON.
--- NOTE | 2019-11-09 22:56 | NUR ---
IV ANTIBIOTIC INFUSING WNL. pt RESTING IN BED WITH EYES CLOSED. BREATHING UNLABORED. pt AWAKENS WITH RN ASSESSING IV SITE. NO REQUESTS AT THIS TIME.
--- NOTE | 2019-11-09 23:59 | NUR ---
IV SL AT THIS TIME. pt RESTING IN BED, DROWSY. NO REQUESTS AT THIS TIME.
--- NOTE | 2019-11-10 03:28 | NUR ---
pt RESTING IN BED WITH EYES CLOSED. BREATHING EQUAL AND UNLABORED. BED ALARM ON.
--- NOTE | 2019-11-10 06:07 | NUR ---
BED ALARM SOUNDING. pt OUT OF BED, AMBULATING INDEPENDENTLY INTO RESTROOM. RNS IN ROOM. WALKER SUPPLIED TO pt. BACK IN BED. ASSESSMENT COMPLETE. DENIES PAIN OR ANY NEEDS. IV FLUSHED WNL. IV ANTIBIOTIC INFUSING ORDERED. BED ALARM ON. LIGHTS OFF IN ROOM.
--- NOTE | 2019-11-10 06:17 | NUR ---
pt DROWSY, SLEEPING MOST OF SHIFT. IMPULSIVE. BED ALARM IN PLACE. 1PA TO BSC FOR VOID, AMBULATING TO RESTROOM X 1. INCONTINENT IN ATTENDS. IV ANTIBIOTICS. HARD OF HEARING. MINIMAL PO INTAKE, PO FLUIDS, FOOD ENCOURAGED.
--- NOTE | 2019-11-10 07:00 | NUR ---
[facility] They are unable to take Kinza at this time. Will speak with family when they arrive today. Sent text to Aiden at [facility] to see if they have beds open.
--- NOTE | 2019-11-10 07:24 | NUR ---
BEDSIDE REPORT FROM EDWIN DELVALLE..PT RESTING IN BED EYES CLOSED RR EVEN AT 16 BPM NO DISTRESS NOTED PT APPEARS TO BE SLEEPING.
--- NOTE | 2019-11-10 07:40 | NUR ---
Spoke with sister Dahiana. She had discussed with sister Livia and Kniza plan if [facility] would not admit patient and they decided over the weekend [facility] would be the next choice. Will send chart as I recieved text stating they have beds open.
--- NOTE | 2019-11-10 08:07 | NUR ---
PATIENT RESTING IN BED. RN IN ROOM. PATIENT'S BREAKFAST ORDERED. CALL LIGHT WITHIN REACH. NO OTHER NEEDS AT THIS TIME
--- NOTE | 2019-11-10 09:13 | NUR ---
PATIENT UP TO BATHROOM AND THEN TO CHAIR, 1PA FWW. FAMILY IN ROOM. PATIENT EATING BREAKFAST IN CHAIR. CALL LIGHT IN REACH. NO FURTHER NEEDS AT THIS TIME. WARM BLANKET GIVEN.
--- NOTE | 2019-11-10 09:30 | NUR ---
Chart faxed to [facility].
--- NOTE | 2019-11-10 10:09 | NUR ---
PATIENT RESTING IN BED. VITAL SIGNS AND I&O DONE. HIGH DYASTOLIC BLOOD PRESSURE. RN NOTIFIED. ATTENDS CHANGED. WARM BLANKET PROVIDED. CALL LIGHT WITHIN REACH. NO OTHER NEEDS AT THIS TIME
--- NOTE | 2019-11-10 10:42 | NUR ---
PT UP TO BEDSIDE COMMODE ONE PERSON ASSIST, DARK LIQUID STOOL, HAS HAD MULTIPLE THIS AM
--- NOTE | 2019-11-10 11:10 | NUR ---
PATIENT RESTING IN BED. SETS UP BATHROOM FOR SHOWER. IV WRAPPED. PATIENT GOES TO USE THE BATHROOM. PATIENT USES WALKER. PATIENT TAKES A SHOWER. ONE PERSON ASSITING. PATIENT USING A CLEAN GOWN AND ATTENDS. PATIENT BACKS TO BED. WARM BLANKETS PROVIDED. CALL LIGHT WITHIN REACH. BED ALARM ON. NO OTHER NEEDS AT THIS TIME
--- NOTE | 2019-11-10 13:00 | NUR ---
Spoke with sister, Halima. Updated, I have not heard from [facility] at this point.
--- NOTE | 2019-11-10 13:20 | NUR ---
STOPPED BY TO SEE IF PT WANTED [facility] TO VISIT. HER SISTER WOKE PT UP, PT EVERARDO SMART, SAID NO. I WILL PASS ALONG. HER SISTER IS EVER BY PTS' SIDE. STILL WAITING FOR PLACEMENT. WILL FOLLOW NEEDED
--- NOTE | 2019-11-10 13:21 | NUR ---
PATIENT RESTING IN BED. VITAL SIGNS AND I&O DONE. PATIENT'S LUNCH ORDERED. CALL LIGHT WITHIN REACH. NO OTHER NEEDS AT THIS TIME
--- NOTE | 2019-11-10 14:42 | NUR ---
PT BACK TO BED AFTER WORKING WITH PHYSICAL THERAPIST EL.
[2019-11-10] MEDS ORDERED: CIPROFLOXACIN500 MG PO (14:59)
[2019-11-10] MEDS ORDERED: METRONIDAZOLE500 MG PO (14:59)
[2019-11-10] MEDS ORDERED: CALCIUM600 MG PO (15:00)
[2019-11-10] MEDS ORDERED: TYLENOL325 MG PO (15:00)
--- NOTE | 2019-11-10 15:00 | NUR ---
Received from [facility] they can accept the patient. Spoke with Dr. Sutton and orders completed. Orders and PASSR faxed and scanned to [facility]. Awaiting confirmation of orders and will notify desk to call van.
[2019-11-10] MEDS ORDERED: HYDROCORTISONE25 MG PR (15:01)
[2019-11-10] MEDS ORDERED: LEVOTHYROXINE50 MCG PO (15:01)
[2019-11-10] MEDS ORDERED: VITAMIN B-1100 M1 PO (15:02)
[2019-11-10] MEDS ORDERED: VITAMIN D325 MC1 PO (15:02)
[2019-11-10] MEDS ORDERED: FOLIC ACID1 MG PO (15:02)
[2019-11-10] MEDS ORDERED: THERA-M TABLET1 EA PO (15:02)
--- NOTE | 2019-11-10 15:45 | NUR ---
Orders confirmed by Aiden at [facility]. Notified Kay to call the van for transport. Sister, Halima aware of transfer. Pt. aware of transfer.
--- NOTE | 2019-11-10 16:11 | NUR ---
REPORT CALLED TO ARLETTE AT [facility] AT THIS TIME
== END 2019-11-10 16:15 | DRG 80 ==
LOC: ED 09:02 → MS 12:09
PROVIDERS: ADMIT Internal Medicine
DX: E03.5 Myxedema coma (principal); E43 Unspecified severe protein-calorie malnutrition; D61.818 Other pancytopenia; E87.1 Hypo-osmolality and hyponatremia; Z68.1 Body mass index [BMI] 19.9 or less, adult; E03.9 Hypothyroidism, unspecified; K52.9 Noninfective gastroenteritis and colitis, unspecified; M06.9 Rheumatoid arthritis, unspecified; R62.7 Adult failure to thrive; F31.9 Bipolar disorder, unspecified; E87.6 Hypokalemia; E83.42 Hypomagnesemia; E83.39 Other disorders of phosphorus metabolism; Z87.891 Personal history of nicotine dependence
CPT/HCPCS: 36415; 51798; 71045; 71260; 74177; 80048; 80053; 80069; 81001; 82306; 82607; 82746; 83540; 83615; 83735; 83880; 83930; 84100; 84439; 84443; 84466; 84484; 85025; 87045; 87046; 87205; 87493; 90662; 93005; 93010; 96361; 96374; 96375; 97110; 97116; 97161; 97166; 97530; 97535; 99285-25; J0744; J2405; J3411; J3475; J3480; J7030; J7040; J7060; J7121; Q9967

== ENCOUNTER 2019-11-12 17:04 | Observation (INO) | payer MEDICARE ==
[~2019-11-12] VITALS: Ht 157.5 cm; Wt 46.9 kg
[~2019-11-12 17:04] MED LIST: CALCIUM600 MG PO; CIPROFLOXACIN500 MG PO; FOLIC ACID1 MG PO; HYDROCORTISONE25 MG PR; LEVOTHYROXINE50 MCG PO; METRONIDAZOLE500 MG PO; THERA-M TABLET1 EA PO; TYLENOL325 MG PO; VITAMIN B-1100 M1 PO; VITAMIN D325 MC1 PO
--- OUTSIDE RECORDS SUMMARY | 2019-11-12 17:06 | XMS ---
PreManage Notification: AUGUSTUS MOLINA Security Manager Of Engineering Events No recent Security Events currently on file CRITERIA MET - [facility] - 2 Visits in 30 Days CARE PROVIDERS Name Unknown [facility] Current PHONE: [phone] JASON WALKER [facility] 05/21/2017-Current PHONE: Unknown JASON WALKER [facility] 05/21/2017-Current PHONE: [phone] DENISE Delgado [facility] 05/21/2017-Current PHONE: Unknown Stephany has no Care Guidelines for this patient. Ciara VISIT COUNT (12 MO.) 2 [facility] TOTAL 2 NOTE: Visits indicate total known visits. ED/UCC VISIT TRACKING (12 MO.) 11/12/2019 17:05 [facility] [place] TYPE: Emergency COMPLAINT: - FEVER 11/04/2019 09:05 [facility] TYPE: Emergency COMPLAINT: - DEHYDRATION, CONFUSION INPATIENT VISIT TRACKING (12 MO.) 11/04/2019 12:09 [facility] TYPE: Medical Surgical COMPLAINT: - MYXEDEMA COMA DIAGNOSES: - Personal history of nicotine dependence - Rheumatoid arthritis, unspecified - Noninfective gastroenteritis and colitis, unspecified - Hypomagnesemia - Hypo-osmolality and hyponatremia - Bipolar disorder, unspecified - Unspecified severe protein-calorie malnutrition - Myxedema coma - Hypothyroidism, unspecified - Other disorders of phosphorus metabolism - Hypokalemia - Body mass index (BMI) 19.9 or less, adult - Adult failure to thrive - Other pancytopenia [email or web address]
--- NOTE | 2019-11-12 22:55 | NUR ---
PT ADMITTED TO ROOM 119, FROM ED. MOSTLY UNRESPONSIVE, WITH OCCASSIONAL MOANING WHEN BEING MOVED. INCONT PAD IN PLACE, RESP 8. NO DISTRESS NOTED, NO SIGNS OF PAIN ONCE MOVING STOPPED. SKIN IS COOL TO TOUCH. BED ALARM PLACED TO BETTER ACCESS HER SAFETY.
--- NOTE | 2019-11-12 23:11 | NUR ---
HELPED TO TRANSFER PT INTO BED. VITALS AND BED WEIGHT DONE AND CHARTED. CALL LIGHT IN REACH.
--- NOTE | 2019-11-12 23:56 | NUR ---
PT APPEARS TO BE RESTING COMFORTABLY IN BED ON BACK. EYES CLOSED. LONG PERIODS OF APNEA NOTED. PT WITHOUT FACIAL GRIMACE, MOANING, OR OTHER SIGNS OF PAIN.
--- NOTE | 2019-11-13 00:25 | NUR ---
[facility] IS THE [facility]ORTUARY OF CHOICE. PT SISTER TIMUR: [phone] CONTACT NUMBER
--- NOTE | 2019-11-13 01:15 | NUR ---
Patient lying in bed. Bradypnea noted. Pale complexion noted at this time. No signs or symptoms of pain or discomfort noted. Allowed to rest. Side rails up X2, Call light in reach.
--- NOTE | 2019-11-13 02:57 | NUR ---
CONTINUES WITH UNLABORED RESPIRATIONS. NO SIGNS OR SYMPTOMS OF PAIN OR DISCOMFORT NOTED AT THIS TIME.
--- NOTE | 2019-11-13 05:41 | NUR ---
LYING IN BED. REMAINS BRADYPNIC AND PALE. NO SIGNS OF PAIN NOTED AT THIS TIME.
--- NOTE | 2019-11-13 06:29 | NUR ---
CONTINUES WITH BRADYPNEA. PALE SKIN. RESPONSIVE TO PAIN. NO MOTTLING NOTED. NO SEIZURE ACTIVITY NOTED. RESTING QUIETLY. NO SIGNS AND SYMPTOMS OF PAIN THROUGHOUT NIGHT. NO PRN MEDICATIONS ADMINISTERED.
--- NOTE | 2019-11-13 07:14 | NUR ---
REPORT RECEIVED FROM ADELIA GRAY. PT RESTING ON BACK WITH EYES CLOSED. RESPIRATIONS EVEN AND UNLABORED. FACES SCALE OF 0/10. BED RAILS UP. CALL LIGHT WITHIN REACH.
--- NOTE | 2019-11-13 07:20 | NUR ---
PT SISTER, KAVIN CALLED. UPDATED ON PTS CONDITION AND STATUS OVER NIGHT. KAVIN VERBALIZES UNDERSTANDING AND STATES ALL HER QUESTIONS HAVE BEEN ANSWERED.
--- NOTE | 2019-11-13 08:00 | NUR ---
THIS RN TO ROOM TO CHECK ON PT. RESPIRATIONS EVEN WITH MILD SNORING. PT REPOSITIONED TO RIGHT SIDE. SEIZURE PADS PLACED. FACES SCORE OF 0 AT THIS TIME. CALL LIGHT WITHIN REACH. CURTAIN OPEN FOR EASY VIEWING FROM NURSES STATION
--- NOTE | 2019-11-13 09:00 | NUR ---
MORNING ASSESSMENT DUE. THIS RN TO BEDSIDE. MILD SNORING NOTED. HOB ELEVATED, RESPIRATIONS EVEN AND UNLABORED WITH RR OF 12 PT UNRESPONSIVE EXCEPT TO PAINFUL STIMULI. SEIZURE PADS IN PLACE. ORAL CARE DONE WITH MOUTH SWABS AND MAN BALM APPLIED. PT REPOSISIONED TO LEFT SIDE. FACES SCORE OF 0 AT THIS TIME. NO ADDITIONAL APPARENT NEEDS. CALL LIGHT WITHIN REACH. CURTAIN OPEN FOR EASY VIEWING FROM NURSES STATION.
--- NOTE | 2019-11-13 09:41 | NUR ---
GROANS HEARD FROM PTS ROOM. PT OPENS EYES TO TOUCH AND VOICE. PT GROANING AND CRIES OUT WITH REPOSITIONING. FLACC SCORE OF 5/10. SEE MAR FOR MEDICAITON GIVEN. PT REPOSISIONTED TO RIGHT SIDE. PT CALMS WITH REPOSITIONING AND PAIN MEDICAITON. RR = 12. BED RAILS UP. SEIZURE PADS IN PLACE. CALL LIGHT WITHIN REACH. PT EASILY VIEWED FROM NURSES STATION.
--- NOTE | 2019-11-13 10:00 | NUR ---
Called and spoke with pt's sister Paulina. She states she is not feeling well. She is staying at [facility]'s apartment here in [place]. She requests I call her Monica who is in [facility]. Called Monica and updated. Discussion of plan for where Pat should go now. Let her know she can go to [facility] for 7 days on comfort care. They will need $4228 dollars up front for the following 14 days. Discussed placement to [facility] with or without hospice. She requests a attempt placement to [facility]. Called [facility], [facility], and [facility]. All are full at this time. I also called [facility] and was able to leave a message with Tsering Ritter. She will call me back if they have beds and let me know if they can take a comfort care patient.
--- NOTE | 2019-11-13 10:31 | NUR ---
THIS RN TO ROOM TO CHECK ON PT. PT RESTING WITH EYES CLOSED, RR = 12. MILD SNORING NOTED. RASS SCORE OF -3, PT MOVES AND OCCATIONAL OPENS EYES TO FIRM TOUCH. NO EYE CONTACT. FLACC SCORE OF 1/10. PT ALLOWED TO REST. SEIZUR PADS IN PLACE. CALL LIGHT WITHIN REACH. PT EASILY VIEWED FROM NURSES STATION.
--- NOTE | 2019-11-13 12:05 | NUR ---
THIS RN TO ROOM TO CHECK ON PT AND REPOSITION PT. PT REPOSITIONED TO BACK WITH HIPS FLOATED. PT CRIES OUT, MOANS AND SWATS AT NURSES WITH REPOSITIONING. PT OPENS EYES WITH MINIMAL EYE CONTACT. RASS SCORE OF -2. FACES SCORE OF 4/10. SEE MAR FOR MEDICATION GIVEN. LIP BALM APPLIED. SEZURE PADS IN PLACE. PT EASILY VIEWED FROM NURSES STATION.
--- NOTE | 2019-11-13 12:52 | NUR ---
THIS RN TO ROOM TO CHECK ON PT. PT RESTING WITH EYES CLOSED. MOANS WITH TOUCH AND VOICE BUT DOES NOT OPEN EYES. FLACC SCORE OF 1/10. PT ALLOWED TO REST. BED RAILS UP. SEIZURE PADS IN PLACE. PT EASILY VIEWED FROM NURSES STATION.
--- NOTE | 2019-11-13 13:09 | NUR ---
PATIENT IS ON CONFORT CARE TURING PATIENT EVERY 2 HR
--- NOTE | 2019-11-13 14:00 | NUR ---
Attempted to call [facility]. Riya is in a meeting. Called [facility] their beds are full. Called [facility] they are also full, but state they have additional facilities and make some calls. Return call and [facility] are full, but one of their foster care has an opening. [facility], [place], [place]. [phone] Charisma Bustillo. Thanked him and let him know I will call the daughter for her approval. Called and spoke with Monica and this is close to her home. She will call be back today and let me know if this is something they can use.
--- NOTE | 2019-11-13 14:13 | NUR ---
THIS RN TO ROOM TO CHECK ON PT. SMALL BM NOTED. VIKKI CARE DONE, DEPENDS CHANGED. PT REPOSITIONED TO RIGHT SIDE. REDNESS NOTED TO GLUTEAL AREAN AND OPEN SOARS TO INNER THIGHS. BARRIER CREAM APPLIED TO GLUTEAL AREA. PT CRIES OUT WITH CARES AND WHEN TOUCHED. BUT IMMIDIATLY QUITES WHEN CARES ARE FINISHED. RASS SCORE OF -2. PT MAKING EYE CONTACT FOR BRIEF PERIODS. FLACC SCORE OF 1/10. BED RAILS UP. SEIZURE PADS IN PLACE. CALL LIGHT WITHIN REACH. PT EASILY VIEWED FROM NURSES STATION.
--- NOTE | 2019-11-13 14:38 | NUR ---
DR BRIONES REQUESTED I CHECK ON PT. PT WAS UNRESPONSIVE, SEEMED COMFORTABLE. PT WAS SLEEPING WITH HER HEAD BACK, MOUTH OPEN. PRAYED FOR PT, INFORMED ME THAT PT HAS BEEN PLACED ON COMFORT CARE HEADING BACK TO [facility]. HER SISTERS HAVE ALL RET[place]ED TO THE[place]. WILL FOLLOW NEEDED
--- NOTE | 2019-11-13 15:00 | NUR ---
Notified by Monica she had called [facility] and they do not have a bed open. She and Paulina talked and would like Pat to return to [facility] for now on comfort care. They are interested in Hospice. Called and spoke with [facility] and asked if they can see Pat when the come to visit another patient here tomorrow. If Pat is still here at 1 pm they will see her. Texted [facility] and asked if pt can return on comfort care tomorrow.
--- NOTE | 2019-11-13 15:06 | NUR ---
Patient is on confort care, RN and Josr MORGAN was in her room at 0900 repostioned patient, @ [phone] RN and Josr MORGAN floated patient two pillow under each bottem. cheeks. at 1400 RN and Josr MORGAN changed patient and gave her personl care.
--- NOTE | 2019-11-13 15:15 | NUR ---
THIS RN TO ROOM TO CHECK ON PT. PT RESTING WITH EYES CLOSED. RR = 8BPM, EVEN WITH MILD SNORING. PT ALLOWED TO REST. BED RAILS UP. CALL LIGHT WITHIN REACH. BED ALARM ON.
--- NOTE | 2019-11-13 16:21 | NUR ---
THIS RN TO ROOM TO CHECK ON PT. PT REPOSITIONED TO LEFT SIDE. DEPENDS CHANGED. VIKKI CARE DONE. ALLEVYN APPLIED TO GLUTEAL REDNESS AND WOUNDS ON INNER THIGHS. PT CRIES OUT WITH CARES. PAIN MEDICATION GIVEN FOR 4/10 FLACC SCORE. RASS SCORE OF -1 WITH EYES OPEN FOR MORE THAN 10 SECONDS. PT BACK TO RESTING WITH EYES CLOSED AFTER CARES. RR = 12. HOB AT 40 DEGREES. HEEL PROTECTORS IN PLACE. BED RAILS UP. BED ALARM ON. CALL LIGHT WITHIN REACH. PT EASILY VIEWED FROM NURSES STATION.
--- NOTE | 2019-11-13 16:30 | NUR ---
Progress notes, H&P,and current meds sent to [facility].
--- NOTE | 2019-11-13 17:47 | NUR ---
PT CONDITON PREVENTING HER FROM ANSWERING QUESTIONS. DID TALK WITH HER SISTER KARTHIK ABOUT 1530 THIS AFTERNOON AND SHE UNDERSTOOD THE CONVERSATION WE HAD ABOUT HER SISTER CONDITION.
--- NOTE | 2019-11-13 17:52 | NUR ---
Called and spoke with Monica. Updated I have spoke with [facility] and have sent them her chart. Received ok from [facility] for pt to return. Do not have time for return as of yet. Gave her Dylan's number from Case Management.
--- NOTE | 2019-11-13 17:55 | NUR ---
THIS RN TO ROOM TO CHECK ON PT. RASS SCORE OF -1, FLACC SCORE OF 0/10. RR = 12 WITH MILD SNORING NOTED. PT REPOSITIONED TO BACK. BED RAILS UP. CALL LIGHT WITHIN REACH. SEIZURE PADS IN PLACE.
--- NOTE | 2019-11-13 17:57 | NUR ---
PT ON COMFORT CARE AFTER SEIZURES WHILE AT [facility]. PRN MORPHINE GIVEN FOR FLACC SCORES OF 4-5/10. RASS SCORES THIS SHIFT OF -3 TO -1. PT OPENING EYES THIS EVENING AND MAKING EYE CONTACT. PT CRIES OUT WILL ALL TOUCHES AND CARES. DEPENS IN PLACE FOR INCONTANANCE. PT NOT EATING OR DRINKING. ORAL CARE AND Q2 TURNS. PT DOES NOT USE CALL LIGHT. EXPECTED TRANSFER TO [facility] TOMORROW.
--- NOTE | 2019-11-13 20:25 | NUR ---
PT CONTINUES ON COMFORT CARE, EYES OPEN TO VOICE AFTER SEVERAL TRIES. SCREAMS WHEN TOUCHED, BUT OTHERWISE IS COMFORTABLE, RESP SHALLOW AT 14, NO CIRCUMMORAL CYAOSIS NOTED. PALE SKIN, ATTENDS IN PLACE, DRY AT THIS TIME. EDEMA OF LOWER EXTREMITIES NOTED, MULTIPLE SCABS OVER LEGS IN DIFFERENS STAGES OF HEALING. HEEL PROTECTORS IN PLACE. SEIZURE PADS IN PLACE. CALL LIGHT AT BEDSIDE, ORAL CARE DONE.
--- NOTE | 2019-11-13 21:45 | NUR ---
COMFORTABLE, RESP SHALLOW, NO CHANGES, PALE SKIN. CALL LIGHT AT HANDS REACH. COMFORT CARE, LEGS ELEVATED
--- NOTE | 2019-11-14 01:18 | NUR ---
shallow breathing, even, on room air, call light at bedside, repositonioned. continues on comfort care, mouth care done
--- NOTE | 2019-11-14 02:41 | NUR ---
PROCEDURE EXPLAINED BEFOREHAND, OPENS EYES WITH VOICE INSTRUCTIONS. TURNED, INCONTINENT OF SCANT AMOUNT OF URINE AND SMEAR OF BM. SKIN CARE DONE, BARRIER CREAM TO BUTTOCKS RED AREA, BRUISE R HIP HEALING. 4 OPSITE BOTTOM OF BUTTOCKS AND UPPER THICKT AREA INTACT. PT SCREAMS WHEN TOUCHED,"LET GO OF ME" SAFETY REASSURED. SEMI RECEPTIVE TO INFORMATION. DENIES BEING IN PAIN, ON ROOM AIR, RESP SHALLOW BUT EVEN AND UNLABORED, SNORES QUIETLY SHE GOES BACK TO SLEEP INMEDIATELY. MOUTH CARE DONE, ASPIRATION AND FALL PRECAUTIONS IN PLACE, CONTINUES ON COMFORT CARE. SEIZURE PADS IN PLACE, 2 SL INTACT, FLUSHES EASILY
--- NOTE | 2019-11-14 05:11 | NUR ---
PT CONTINUES ON COMFORT CARE. HAS SLEPT MOST OF THIS SHIFT, RESP SHALLOW, EVEN, UNLABORED, SNORING. OPENS EYES TO COICE AFTER SEVERAL CUES,. TURNED Q2H, WAS INCONTINENT OF SMAL AMOUNT OF URINE AND SMEAR OF BM NOTED IN ATTENDS. SEIZURE PADS IN PLACE. MOUTH CARE AND VIKKI CARE DONE. PT SCREAMS WHEN LIGHTLY TOUCHED OR WHEN COVERS ARE REMOVED WITHOUT BEING TOUCHED, COMFORTABLE, CALL LIGHT AT HANDS REACH
--- NOTE | 2019-11-14 06:14 | NUR ---
awakes easily, repositioned to L side. screaming 'let me go'. procedure explained prior to, not following isntructions unable to do. then goes quiet . Contines to have decreased urinary output, tolerating sips of fluids. aspirationa nd fall precautions inplace. legs elevatyed, heel protectors in place, call light at hands reach
--- NOTE | 2019-11-14 07:38 | NUR ---
0705: BEDSIDE REPORT RECIEVED FROM MARLYS DELVALLE. PT OPENED HER EYES TO VOICE, DID NOT RESPOND TO QUESTIONS AND FELL RIGHT BACK TO SLEEP. PT APPEARS COMFORTABLE AT THIS TIME. BED ALARM IS NO AND CALL FRIAS WITHIN REACH.
--- NOTE | 2019-11-14 08:28 | NUR ---
PATIENT HAS BEEN RESTING QUIETLY THIS MORNING. RN IN ROOM AT THIS TIME.
--- NOTE | 2019-11-14 08:32 | NUR ---
RIGHT AC AND LEFT HAND IV SITES INTACT AND FLUSH WITHOUT DIFFICULTY.
--- NOTE | 2019-11-14 08:44 | NUR ---
PT AWAKES TO VOICE AND ASKED FOR A DRINK OF WATER. PT SAT UP HIGH IN HER BED AND DRANK SOME WATER WITHOUT DIFFICULTY. PT ASKED SOME QUESTIONS BUT DID NOT RESPOND. ALLVYEN DRESSINGS X 4 TO HER BUTTOCKS AND POSTERIOR THIGHS REMAINS CDI. ATTENDS CLEAN AND DRY. PT REPOSTIONED AND SHE YELLS OUT IN WHAT APPEARS TO BE FEAR WHEN TURNED. PT QUICKLY STOPS YELLING ONCE REPOSITIONED AND SHE QUICKLY FELL TO SLEEP. RR IS NOW 14. EDEMA NOTED IN HER ARMS AND LOWER BACK DOWN TO HER FEET, SHE HAS NO NOTED RESP DISTRESS AND HER LUNG SOUNDS ARE CLEAR AND DECREASED IN THE BASES. BED ALARM REMAINS ON.
[2019-11-14] MEDS ORDERED: LORAZEPAM1 MG PO (08:58)
[2019-11-14] MEDS ORDERED: LORAZEPAM INT2 MG/ML SL (08:58)
[2019-11-14] MEDS ORDERED: MORPHINE S100 MG/5 M SL (08:58)
--- NOTE | 2019-11-14 09:40 | NUR ---
PATIENT WAS SLEEPING WHEN I TRIED TO SPEAK WITH HER. ORDERS FINISHED FOR RETURN TO [facility], FAXED TO [facility] WITH FAX CONFIRMATION RECEIVED AT 0938AM. SPOKE WITH [employer] DEVELOPER REGARDING RETURN. THEY WILL ACCEPT PATIENT. CHART PACK FINISHED WITH COPIES OF CHART, ORDERS, ORIGINAL RX AND LEFT WITH CHARGE NURSE FOR RETURN TO FACILITY. PATIENT WILL MOST LIKELY NEED NON-EMERGENT TRANSFER DUE TO NOT BEING ABLE TO TRANSFER SAFELY IN WHEELCHAIR.
--- NOTE | 2019-11-14 10:50 | NUR ---
PT'S SISTER PRESENT IN THE ROOM. SHE STATES THAT THE PT HAS BEEN TALKING WITH HER A "LITTLE BIT". I ASKED THE PT HOW SHE IS DOING AND SHE RESPONDS, "I NEED TO USE THE BATHROOM". PT WAS PLACED ON THE BEDPAN AND SHE DID NOT VOID. BEDPAN REMOVED AT THIS TIME. PT CONTINUES TO APPEAR COMFORTABLE BUT DOES NOT ANSWER WHEN ASKED IF SHE IS HAVING ANY PAIN.
--- NOTE | 2019-11-14 11:11 | NUR ---
REPORT CALLED TO ESPERANZA DELVALLE AT [facility].
--- NOTE | 2019-11-14 11:19 | NUR ---
YESTERDAY THE NURSE AND I CHANGED HER A VIKKI CARED GOT HER A WARM BLANKET. AND CHANGED POSITION ON HER LEFT SIDE. THE NURSE ALSO DID ORAL CARE.
--- NOTE | 2019-11-14 11:21 | NUR ---
PATIENT'S FAMILY MEMBER CALLED AND SAID HER SISTER NEEDED TO USE THE BED AGUERO. SO GABE CAME IN AND HELPED ME PUT HER ON THE BED AGUERO. SHE ALSO DRANK A LITTLE BIT OF WATER AND ALSO SOME APPLE ENSURE.
--- NOTE | 2019-11-14 11:30 | NUR ---
NON-EMERGENT TRANSFER FORM FINISHED AND LEFT WITH HVAC MAINTENANCE TECHNICIAN AND CHARGE NURSE. DISCUSSED I RECEIVED TEXT FROM [place] [employer] SETTER ASKING FOR PATIENT TO RETURN TO FACILITY AT 1PM. THEY WILL CONTACT EMS FOR TRANSFER. MANUFACTURING ENGINEER SUPERVISOR STATES FAMILY IS AWARE.
--- NOTE | 2019-11-14 12:15 | NUR ---
CHECKED ON PT-SHE WAS SURPRISINGLY AWAKE AND AWARE OF MY PRESENCE. SHE SAID SHE NEEDED HELP WITH TOILETING. THAT WAS ALL THAT SHE WAS CONCERNED WITH. I LET EDDIE BERNAL KNOW. WILL FOLLOW NEEDED
--- NOTE | 2019-11-14 13:02 | NUR ---
PT SLEEPING AT THIS TIME. RR 12.
--- NOTE | 2019-11-14 16:10 | NUR ---
RECEIVED REFERRAL FORM FOR PHYSCIAN TO SIGN FROM [facility]. THIS WAS GIVEN TO DR BRIONES, SIGNED AND FAXED BACK TO [facility]. SPOKE WITH CLARISSA MILAN WHO UNDERSTANDS PATIENT HAS RETURNED TO [facility]. SHE WILL CONTACT THEM.
== END 2019-11-14 13:15 | disposition home or self-care (01) ==
LOC: ED 17:04 → MS 17:06
PROVIDERS: ADMIT Student in an Organized Health Care Education/Training Program
DX: G40.901 Epilepsy, unspecified, not intractable, with status epilepticus (principal); Z51.5 Encounter for palliative care; R62.7 Adult failure to thrive; M06.9 Rheumatoid arthritis, unspecified; R64 Cachexia; Z79.899 Other long term (current) drug therapy; Z87.891 Personal history of nicotine dependence
CPT/HCPCS: 80053; 81001; 84443; 85025; 96374; 96375; 96376; 99285-25; G0378; G0480; J2060; J2270